=== PATIENT | male | born 1950 | race Two or more races ===

== ENCOUNTER → 2017-11-06 | Outpatient (CLI) | payer MEDICARE, BC ==
[~2017-11-06] MED LIST: IOHEXOL-300 100 ML BOTTLE ONE
== END | disposition home or self-care (01) ==
LOC: CT 08:55
PROVIDERS: ATTEND Radiology Radiation Oncology
DX: C21.0 Malignant neoplasm of anus, unspecified (principal); N43.3 Hydrocele, unspecified; M79.89 Other specified soft tissue disorders
CPT/HCPCS: 72194; 76870; 93976; Q9967